=== PATIENT | female | born 1965 | race African-American/Black ===

== ENCOUNTER 2021-11-24 05:32 | Emergency (ER) | payer MEDICAID, OTHER ==
[~2021-11-24] VITALS: Ht 180.3 cm; Wt 124.3 kg
[2021-11-24 05:46] VITALS: BP 179/99
[2021-11-24] MEDS ORDERED: DIPHENHYDRAMINE 50MG CAPSULE PO ONE (06:15)
[2021-11-24] MEDS ORDERED: IBUPROFEN 600MG TABLET PO ONE (06:15)
[2021-11-24] MEDS ORDERED: B50 MT (07:06)
[2021-11-24] MEDS ORDERED: HYDR-4233 RC (07:06)
[2021-11-24] MEDS ORDERED: CEPH500C2 MT (07:06)
[2021-11-24] MEDS ORDERED: CLIN-194 PO (07:06)
== END 2021-11-24 07:30 | disposition home or self-care (01) ==
LOC: ER 05:32
DX: S40.862A Insect bite (nonvenomous) of left upper arm, initial encounter (principal); S80.862A Insect bite (nonvenomous), left lower leg, initial encounter; S80.861A Insect bite (nonvenomous), right lower leg, initial encounter; L03.114 Cellulitis of left upper limb; S41.112A Laceration without foreign body of left upper arm, initial encounter; R03.0 Elevated blood-pressure reading, without diagnosis of hypertension; E11.9 Type 2 diabetes mellitus without complications; W57.XXXA Bitten or stung by nonvenomous insect and other nonvenomous arthropods, initial encounter; Y93.89 Activity, other specified; Y92.89 Other specified places as the place of occurrence of the external cause; Z85.528 Personal history of other malignant neoplasm of kidney
CPT/HCPCS: 99283; Q0163